=== PATIENT | male | born 1960 | race Caucasian/White ===

== ENCOUNTER → 2019-09-12 10:47 | Outpatient (CLI) | payer OTHER, SELFPAY ==
--- NOTE | ~2019-09-12 | XR_ITS ---
XR foot LT min 3V DATE: 09/12/2019 11:12 INDICATION: Fall. Dorsal foot pain with weightbearing TECHNIQUE: 4 views COMPARISON: None FINDINGS: There is mild osteoarthritis at the first metatarsophalangeal joint and the tarsal joints. No fracture or dislocation, periosteal reaction or bone destruction. Minimal plantar and prominent posterior calcaneal enthesopathy. IMPRESSION: Mild osteophyte is Calcaneal enthesopathy Reviewed, dictated and finalized at location B.
== END ==
DX: M77.32 Calcaneal spur, left foot (principal)
CPT/HCPCS: 73630

== ENCOUNTER 2019-09-24 09:41 | Emergency (ER) | payer OTHER, SELFPAY ==
[2019-09-24 09:47] VITALS: BP 155/77; PULSE 73; RESP 16; TEMP 35.9; O2SAT 97
--- NOTE | 2019-09-24 10:05 | ED.SKABFB ---
HPI - Skin/Abscess/Foreign Bdy General Chief complaint: Skin/Abscess/Foreign Body Stated complaint: infected hair in armpit Time Seen by Provider: 09/24/19 10:05 Source: patient and RN notes reviewed Mode of arrival: ambulatory Limitations: no limitations History of Present Illness HPI narrative: 59 year old male who presents to express care with complaints of redness with swelling to his left axilla which he noted Tuesday night. Patient states that he has experienced these same symptoms before to area with ingrown hair. Patient has 3cm X 1cm area of tissue which is noted to be irregular in shape with raised redness to armpit with no induration of tissue or pronouned boil type lesion. Patient states that he has been putting neosporin ointment to area, denies acute pain or any fevers chills or sweats. MD complaint: other (cellulitus) Onset (ago): day(s) (3) Tetanus up to date: yes Location: LUE (axilla) Severity: moderate Quality: aching Pain Consistency: intermittent Relieving factors: none Exacerbating factors: palpation and movement Context: none Associated symptoms: denies other symptoms Treatments prior to arrival: OTC topical medication Related Data Home Medications Medication Instructions Recorded Confirmed amlodipine 10 mg PO DAILY 09/24/19 09/24/19 atenolol 50 mg PO DAILY 09/24/19 09/24/19 atorvastatin 20 mg PO DAILY 09/24/19 09/24/19 cilostazol 100 mg PO BID 09/24/19 09/24/19 clopidogrel 75 mg PO DAILY 09/24/19 09/24/19 folic acid 1 mg PO DAILY 09/24/19 09/24/19 gabapentin 300 mg PO DAILY 09/24/19 09/24/19 hydrochlorothiazide 25 mg PO DAILY 09/24/19 09/24/19 lisinopril 40 mg PO DAILY 09/24/19 09/24/19 venlafaxine 75 mg PO DAILY 09/24/19 09/24/19 Allergies Allergy/AdvReac Type Severity Reaction Status Date / Time No Known Allergies Allergy Verified 09/24/19 10:11 Review of Systems Review of Systems: Narrative: CONSTITUTIONAL: Denies fever, chills, or sweats. EYES: Denies visual changes, redness, or discharge. ENT: Denies rhinorrhea, congestion, sore throat, or otalgia. CARDIOVASCULAR: Denies chest pain, palpitations, or edema. RESPIRATORY: Denies cough or dyspnea. GASTROINTESTINAL: Denies abdominal pain, nausea, vomiting, or diarrhea. GENITOURINARY: Denies dysuria or hematuria. SKIN: red raised area of tissue to left axilla, no drainage or itching. MUSCULOSKELETAL: Denies back pain, joint pain, or myalgia. NEUROLOGIC: Denies headache, numbness, or weakness. PSYCHIATRIC: Positive history of anxiety or depression. 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 There is no relevant family history pertinent to the presenting complaint Exam Narrative: Exam Narrative: GENERAL: Well-appearing, well-nourished,obese, and in no acute distress. HEAD: Normocephalic, atraumatic. EYES: PERRLA and EOMI. ENT: Nares clear, no rhinorrhea or epistaxis. Mucous membranes moist. NECK: Supple.no lymphadenopathy CHEST: Clear to auscultation. No respiratory distress.SAO2 97% on room air HEART: Regular rate and rhythm. No murmur heard. Normal peripheral pulses. ABDOMEN: Soft, nontender, nondistended, normal active bowel sounds. EXTREMITIES: Normal range of motion. No edema. SKIN: Warm, dry,3cm X 1cm red raised tissue to left axilla no acute pain to site, no drainage or induration of tissue, no specific boil or pustu
== END 2019-09-24 10:35 | disposition home or self-care (01) ==
PROVIDERS: Emergency Provider Registered Nurse
DX: L02.412 Cutaneous abscess of left axilla (principal); E78.5 Hyperlipidemia, unspecified; I10 Essential (primary) hypertension; Z85.828 Personal history of other malignant neoplasm of skin
CPT/HCPCS: 99213; G0463

== ENCOUNTER 2021-07-05 10:00 | Emergency (ER) | payer OTHER, SELFPAY ==
--- NOTE | 2021-07-05 10:02 | ED.URI ---
HPI - URI/Sore Throat General Chief Complaint: Upper Respiratory Infection Stated Complaint: sore throat Time Seen by Provider: 07/05/21 10:02 Source: patient and RN notes reviewed History of Present Illness HPI Narrative: Patient is 61-year-old male who presents the urgent care with complaints of cough, fatigue, sore throat and hoarseness. Patient states that it started on and he has been doing salt water gargles. Patient denies any fever, chills, nausea or vomiting. Patient has had the COVID-vaccine and denies any recent exposures. Patient states that he just needs an antibiotic for his sore throat . Denies of any shortness of breath. No other acute complaints. No acute distress noted. Patient aware of the plan of care. Some parts of this dictation were generated by voice recognition software and may contain typographical and/or grammatical inaccuracies. Related Data Home Medications Medication Instructions Recorded Confirmed amlodipine 10 mg PO DAILY 09/24/19 09/24/19 atenolol 50 mg PO DAILY 09/24/19 09/24/19 atorvastatin 20 mg PO DAILY 09/24/19 09/24/19 cilostazol 100 mg PO BID 09/24/19 09/24/19 clopidogrel 75 mg PO DAILY 09/24/19 09/24/19 folic acid 1 mg PO DAILY 09/24/19 09/24/19 gabapentin 300 mg PO DAILY 09/24/19 09/24/19 hydrochlorothiazide 25 mg PO DAILY 09/24/19 09/24/19 lisinopril 40 mg PO DAILY 09/24/19 09/24/19 venlafaxine 75 mg PO DAILY 09/24/19 09/24/19 albuterol sulfate 2 puff INHALATION Q6H PRN 07/05/21 07/05/21 tiotropium bromide [Spiriva with 18 mcg INHALATION DAILY 07/05/21 07/05/21 HandiHaler] tramadol 50 mg PO Q4H PRN 07/05/21 07/05/21 Allergies Allergy/AdvReac Type Severity Reaction Status Date / Time No Known Allergies Allergy Verified 07/05/21 10:40 Review of Systems Review of Systems: CONSTITUTIONAL: Denies fever, chills, or sweats. Reports of fatigue EYES: Denies visual changes, redness, or discharge. ENT: Reports a hoarse voice, sore throat CARDIOVASCULAR: Denies chest pain, palpitations, or edema. RESPIRATORY: Reports nonproductive cough without dyspnea GASTROINTESTINAL: Denies abdominal pain, nausea, vomiting, or diarrhea. GENITOURINARY: Denies dysuria or hematuria. SKIN: Denies rash or itching. MUSCULOSKELETAL: Denies back pain, joint pain, or myalgia. NEUROLOGIC: Denies headache, numbness, or weakness. All other systems reviewed are negative, except as documented in HPI. [facility] Past Medical History Medical History (Updated 07/05/21 @ 10:34 by [email or web address] Box) Hyperlipidemia Hypertension Localized cancer of skin of back Stenosis of artery of left lower extremity Surgical History Surgical History (Updated 09/26/19 @ 11:16 by Araceli Hurley NP) History of angioplasty of peripheral vessel Social History Social History (Updated 09/26/19 @ 11:17 by Araceli Hurley NP) Smoking status: Former smoker Gender identity (if verbalized by the patient): Male Comments At the time of my signature, I reviewed and agree with the nursing past medical, surgical, social, and family history. There is no relevant family history pertinent to the patient complaint. Exam Narrative: GENERAL: This is a well-nourished, well-developed patient, in no apparent distress. HEAD: normocephalic, atraumatic. EYES: PERRL. Sclera clear/white. Vision is grossly intact. EARS: External ears normal, auditory canals clear and without drainage, bilateral cerumen noted without impaction. TMs normal without perforation. Hearing grossly intact. NOSE: External nose normal with no obvious nasal discharge, nares without redness, clear yellow rhinorrhea. THROAT: Mucous membranes moist. Moderate erythema noted posterior pharynx without tonsillar edema or exudate. Notable thrush covering the surface of the tongue. Hoarse voice NECK: Neck supple CARDIOVASCULAR: Regular rate and rhythm without murmurs, gallops, or rubs. RESPIRATORY: Diminished throughout with crackles bibasilar SKIN: wa
[2021-07-05 10:11] VITALS: BP 144/74; PULSE 63; RESP 18; TEMP 35.5; O2SAT 96
== END 2021-07-05 10:34 | disposition left against medical advice (07) ==
PROVIDERS: Emergency Provider Nurse Practitioner Family; PCP Internal Medicine
DX: J04.0 Acute laryngitis (principal); J02.9 Acute pharyngitis, unspecified; R05.9 Cough, unspecified; Z20.822 Contact with and (suspected) exposure to COVID-19; E78.5 Hyperlipidemia, unspecified; I10 Essential (primary) hypertension; Z85.828 Personal history of other malignant neoplasm of skin; Z87.891 Personal history of nicotine dependence; I70.202 Unspecified atherosclerosis of native arteries of extremities, left leg
CPT/HCPCS: 87426; 99213; C9803; G0463